=== PATIENT | female | born 2000 | race Caucasian/White ===

== ENCOUNTER 2019-05-14 16:43 | Emergency (ER) | payer OTHER, SELFPAY ==
--- NOTE | 2019-05-14 16:49 | ED.GENADULT ---
HPI - General Adult General Chief complaint: Urogenital-Female Stated complaint: LOW BACK PAIN/FEVER/CHILLS/NAUSEA Time Seen by Provider: 05/14/19 16:49 Source: patient and RN notes reviewed Mode of arrival: ambulatory Limitations: no limitations History of Present Illness HPI narrative: Pt is a 18 y/o female who is a nonsmoker/nondrinker that presents to the with c/o HALEY flank pain. Pt states that she started having lower ABD pain 5 days ago and she went to [facility] and was Dx with a UTI. She was Rx Macrobid and a pain medicine. She states that her dysuria, frequency, urgency, and lower ABD pain has gotten better since she was put on the Abx and pain medicine. But she started getting HALEY flank pain and intermittent fevers yesterday.Pt denies vaginal bleeding or discharge , ABD surgeries, constipation. She notes that her flank pain did not let her sleep last night. Pt states that she was supposed to star her period last week but has not. She notes that she had sexual intercourse for the first time with her partner who also had sexual intercourse for the first time. . She notes that she has nausea in the . She declines AMA, referral to hospital for flank pain; and declines STD treatment-- preferring to await results complaint: Flank pain Onset (ago): day(s) (1) Location: left and right Pain Consistency: constant Relieving factors: none Associated symptoms: fever/chills and nausea/vomiting Treatments prior to arrival: other (Abx and pain medicine) Related Data Home Medications Medication Instructions Recorded Confirmed nitrofurantoin macrocrystal 100 mg PO Q12H 05/14/19 05/14/19 phenazopyridine 05/14/19 Allergies Allergy/AdvReac Type Severity Reaction Status Date / Time No Known Allergies Allergy Verified 05/14/19 17:02 Exam Narrative: Exam Narrative: General Appearance: Well appearing, No distress EYE: PERRLA, Conjunctiva clear Ears: External ear normal Nose: Normal nose Mouth/Throat: Normal appearing, Normal lips Neck: Supple Respiratory: Airway patent, No respiratory distress Cardiovascular: RRR Abdomen: Soft, Non-tender, No massess, No organomegaly Musculoskeletal: Full ROM Skin: Warm, Dry Neurological: A&O x3, CN II-X intact Psychiatric: Normal mood, Normal affect Course Vital Signs Vital signs: Vital Signs Temperature 97.9 F 05/14/19 16:51 Pulse Rate 92 05/14/19 16:51 Respiratory Rate 16 05/14/19 16:51 Blood Pressure 132/65 05/14/19 16:51 Pulse Oximetry 100 05/14/19 16:51 Temperature 97.9 F 05/14/19 16:51 Pulse Rate 92 05/14/19 16:51 Respiratory Rate 16 05/14/19 16:51 Blood Pressure 132/65 05/14/19 16:51 Pulse Oximetry 100 05/14/19 16:51 Medical Decision Making Vital Signs Vital Signs: Vital Signs Temperature 97.9 F 05/14/19 16:51 Pulse Rate 92 05/14/19 16:51 Respiratory Rate 16 05/14/19 16:51 Blood Pressure 132/65 05/14/19 16:51 Pulse Oximetry 100 05/14/19 16:51 Temperature 97.9 F 05/14/19 16:51 Pulse Rate 92 05/14/19 16:51 Respiratory Rate 16 05/14/19 16:51 Blood Pressure 132/65 05/14/19 16:51 Pulse Oximetry 100 05/14/19 16:51 Lab Data Labs: UCG Bedside Result Negative Reference Range: Negative Urine Glucose Negative Reference Range: Negative Urine Bilirubin Negative Reference Range: Negative Urine Ketone Negative Reference Range: Negative Urine Specific [place] 1.025 Reference Range:1.001-1.035 Urine Blood Negative Reference Range: Negative * * Urine pH 7.0 Reference Range: 5.0-9.0 Urine Protein Negative Reference Range: Negative Urine Urobilinogen 0.2 Reference Range: 0.2-1.0 Urine Nitrate Negative Reference Range:
[2019-05-14 16:51] VITALS: BP 132/65; PULSE 92; RESP 16; TEMP 36.6; O2SAT 100
== END 2019-05-14 17:48 | disposition home or self-care (01) ==
PROVIDERS: Emergency Provider Emergency Medicine
DX: R10.9 Unspecified abdominal pain (principal); Z87.448 Personal history of other diseases of urinary system
CPT/HCPCS: 81003; 81025; 87086; 87491; 87591; 99213; G0463

== ENCOUNTER 2019-07-30 21:28 | Emergency (ER) | payer OTHER, SELFPAY ==
[2019-07-30 21:34] VITALS: BP 91/63; PULSE 108; RESP 18; TEMP 36.8; O2SAT 97
[2019-07-30 21:48] LABS: Basophils Percent Auto 0.3 % (0.2-1.2); Eosinophils Absolute Auto 0.1 K/mm3 (0-0.3); Eosinophils Percent Auto 0.5 % (0-4.4); Hemoglobin 13.7 g/dL (12.0-15.0); Immature Granulocyte Absolute 0.05 K/mm3 (0.00-0.031); Immature Granulocyte Percent A 0.3 % (0-0.5); Lymphocytes Absolute Auto 2.32 K/mm3 (0.9-3.2); Lymphocytes Percent Auto 15.4 % (18.3-44.2); Mean Corpuscular HGB Conc 34.3 g/dl (32-36); Mean Corpuscular Hemoglobin 31.1 pg (26-34); Mean Corpuscular Volume 90.9 fl (80-100); Mean Platelet Volume 8.9 fl (7.4-10.4); Monocytes Absolute Auto 1.3 K/mm3 (0.1-0.6); Monocytes Percent Auto 8.3 % (2.6-8.5); Neutrophils Absolute Auto 11.3 K/mm3 (1.3-6.7); Neutrophils Percent Auto 75.2 % (45.5-73.1); Platelet Count Result 264 k/mm3 (150-375); Red Cell Distribution Width 12.1 % (11.5-14.5)
[2019-07-30 21:53] LABS: Add Urine Microscopic? YES; Appearance Urine Cloudy (Clear); Bacteria Urine 1+ /hpf; Bilirubin Urine Negative (Negative); Blood Urine 2+ (Negative); Color Urine Yellow (Yellow); Glucose Urine UA Negative (Negative); Ketones Urine Negative (Negative); Leukocyte Esterase Ur 3+ LEU/UL (Negative); Mucus Urine Rare /lpf; Nitrate Urine Negative (Negative); Protein Urine 2+ mg/dL (Negative); RBC Urine >75 /hpf (0-2); Specific Grav Ur 1.014 (1.001-1.035); Squamous Epithelial Cell Urine Many /hpf (Few); Urobilinogen Urine Negative mg/dL (<2.0); WBC Urine >75 /hpf
[2019-07-30 22:00] LABS: Alanine Aminotransferase 22 U/L (4-35); Albumin Level 4.6 g/dL (3.5-5.1); Alkaline Phosphatase 80 U/L (38-126); Aspartate Amino Transferase 26 U/L (14-36); Bilirubin,Total 0.3 mg/dL (0.2-1.3); Blood Urea Nitrogen 13 mg/dL (7-17); Calcium 9.5 mg/dL (8.4-10.2); Carbon Dioxide 26 mmol/L (22-30); Chloride 104 mmol/L (98-107); Estimated CRCL calculation 97 ml/min; Estimated Glomerular Filt Rate > 60; Glucose 95 mg/dL (65-105); Lipase 70 U/L (23-300); Potassium 3.6 mmol/L (3.4-5.0); Sodium 140 mmol/L (137-145)
[2019-07-30] MEDS: LACTATED RINGERS 1,000 ML 999 ML IV CONT (22:07)
--- NOTE | 2019-07-30 22:24 | ED.ABDPAIN ---
HPI - Abdominal Pain General Chief Complaint: Abdominal Pain Stated Complaint: abd pain Time Seen by Provider: 07/30/19 21:34 Source: patient Mode of arrival: ambulatory Limitations: no limitations History of Present Illness HPI narrative: 19 f healthy, no prior operations, did have uti, ? pyelo, several months ago c/o 2 days of ap which seems to have worsened began low and crampy and now more generalized and constant nothing particularly aggravates or alleviates her symptoms No vomiting no diarrhea no hematuria no fever Her last menstrual period was the end of May but she says her periods are irregular and widely spaced and this does not alarm her very much She does take the Metamucil sometimes her constipation but does not been a problem lately Related Data Allergies Allergy/AdvReac Type Severity Reaction Status Date / Time No Known Allergies Allergy Verified 07/30/19 21:37 Review of Systems Review of Systems: All systems reviewed & are unremarkable except as noted in HPI and below Constitutional: Constitutional: Denies chills, Denies fever(s) and Denies weakness ENT: Denies dizziness Respiratory: Respiratory: Denies cough and Denies dyspnea Gastrointestinal: Gastrointestinal: Reports abdominal pain, Reports constipation, Denies diarrhea and Denies vomiting PMFSH Social History Social History Gender identity (if verbalized by the patient): Female Exam Const: General: healthy appearing, no acute distress and well developed Nutritional Appearance: well nourished Orientation/consciousness: patient oriented x3 (alert) and Other orientation findings (Alert) Limitations: no limitations HENMT: Head: normocephalic and atraumatic Ears: external ears normal General nose exam: No nasal discharge present and Epistaxis present Face and sinus: face symmetric Mouth: Yes lip normal, Yes tongue normal and Yes moist mucous membranes Throat: other (No exudate, no erythema) Eyes: Conjunctivae: conjunctivae normal Sclera: sclerae normal EOM: EOMs intact bilaterally Neck: Neck: full ROM, no lymphadenopathy and supple Thyroid: thyroid normal Chest: Chest palpation & inspection: tenderness Resp: Effort & Inspection: normal respiratory effort Auscultation: clear to auscultation bilaterally, no rales, no rhonchi, no wheezes and other (breath sounds equal) Cardio: Rate: regular rate Rhythm: regular rhythm Heart sounds: no gallops and no murmurs GI: Inspection: non-distended GI Palp: No abdominal tenderness, Yes Soft to palpation, No Tenderness to palpation present (GI) and No Rebound tenderness present Auscultation: normal bowel sounds and other (bowel sounds present) : General: Yes CVA tenderness on the right Back/Spine/Pelvis: Thoracic/Lumbar Spine: thoracic and lumbar spine normal to inspection Skin: General skin exam: normal color and no rashes or lesions noted Neuro: General: patient oriented x3 (alert), moves all extremities and no focal motor deficits Cranial nerves: Yes facial symmetry Speech: normal speech Motor exam (neuro): Motor abnormalities not present Extrem: General: normal to inspection, full ROM and no pedal edema Psych: Affect: normal affect Course Course Emergency Course: rec'd fluids and initial iv abx dose; lactic done due to wbc and lowish bp and was wnl Vital Signs Vital signs: Vital Signs Temperature 36.8 C 07/30/19 21:34 Pulse Rate 108 H 07/30/19 21:34 Respiratory Rate 18 07/30/19 21:34 Blood Pressure 91/63 L 07/30/19 21:34 Pulse Oximetry 97 07/30/19 21:34 Temperature 36.8 C 07/30/19 21:34 Pulse Rate 76 07/30/19 22:49 Respiratory Rate 19 07/30/19 22:49 Blood Pressure 121/67 07/30/19 22:49 Pulse Oximetry 100 07/30/19 22:49 MDM - Abdominal Pain Lab Data Result diagrams: 07/30/19 21:42 07/30/19 21:42 Labs: Lab Results 07/30/19 07/30/19 07/30/19 Range/Units 21:42 21:42 21:42 WBC 15
[2019-07-30 22:35] LABS: Lactic Acid Reflex 0.7 mmol/L (0.7-2.1)
[2019-07-30 22:49] VITALS: BP 121/67; PULSE 76; RESP 19; O2SAT 100
[2019-07-30 23:32] VITALS: BP 117/67; PULSE 80; RESP 19; TEMP 36.8; O2SAT 100
== END 2019-07-30 23:33 | disposition home or self-care (01) ==
PROVIDERS: Emergency Medicine; Emergency Provider Emergency Medicine
DX: N12 Tubulo-interstitial nephritis, not specified as acute or chronic (principal)
CPT/HCPCS: 36415; 80053; 81001; 81025; 83605; 83690; 85025; 87077; 87086; 87088; 87186; 96365; 99284; J1956; J7120